=== PATIENT | male | born 1995 | race American Indian/Alaskan Native ===

== ENCOUNTER 2017-01-03 20:48 | Emergency (ER) | payer SELFPAY ==
--- NOTE | 2017-01-04 01:38 | Emergency Department Report ---
ED Upper Extremity Inj HPI - General Chief Complaint: Extremity Injury, Upper Stated Complaint: LT HAND FIFTH FINGER INJURY/RT SHOULDER INJURY Time Seen by Provider: 01/04/17 01:28 Source: patient Mode of arrival: Ambulatory Limitations: No Limitations - History of Present Illness Initial Comments: This is a 22-year-old male well-nourished with nontoxic or ill in appearance that presents to the ED with a complaint of right shoulder pain status post playing basketball 2 days ago and running into his partner. Patient also has a secondary complaint of left pinky finger injury that has occurred 3 weeks ago and like to have it evaluated. Patient stated this has occurred while playing as well as well. Patient with shoulder pain as 6 out of 10 that is described as sharp. Patient denies any numbness, tingling, fever, chills, joint swelling , joint redness, decreased range of motion, pop sensation, chest pain, short of breath, stiff neck, headache or blurry vision. Patient denies any allergies. Denies Past medical history. MD Complaint: Injury to:: right, shoulder, finger -: Gradual, days(s) (2) Other Extremity Injury: Fingers: Left (pinky), Shoulder: Right Other Injuries: none Place: outdoors Severity scale (0 -10): 6 Improves With: none Worsens With: none Context: direct blow Associated Symptoms: denies other symptoms. denies: weakness, numbness, neck pain, nausea/vomiting, heard/felt popping sensat - Related Data Previous Rx's Medication Instructions Recorded Last Taken Type Ibuprofen [Motrin 600 MG tab] 600 mg PO Q8H PRN #20 tablet 01/04/17 Unknown Rx Allergies Allergy/AdvReac Type Severity Reaction Status Date / Time No Known Allergies Allergy Unverified 01/03/17 22:01 ED Review of Systems ROS: Stated complaint: LT HAND FIFTH FINGER INJURY/RT SHOULDER INJURY Other details as noted in HPI Constitutional: denies: chills, fever Eyes: denies: eye pain, eye discharge, vision change ENT: denies: ear pain, throat pain Respiratory: denies: cough, shortness of breath, wheezing Cardiovascular: denies: chest pain, palpitations Endocrine: no symptoms reported Gastrointestinal: denies: abdominal pain, nausea, diarrhea Genitourinary: denies: urgency, dysuria Musculoskeletal: denies: back pain, joint swelling, arthralgia Skin: denies: rash, lesions Neurological: denies: headache, weakness, paresthesias Psychiatric: denies: anxiety, depression Hematological/Lymphatic: denies: easy bleeding, easy bruising ED Past Medical Hx - Past Medical History Previous Medical History?: No - Surgical History Past Surgical History?: No - Social History Smoking Status: Current Every Day Smoker Substance Use Type: Alcohol, Marijuana - Medications Home Medications: Home Medications Medication Instructions Recorded Confirmed Last Taken Type Ibuprofen [Motrin 600 MG tab] 600 mg PO Q8H PRN #20 tablet 01/04/17 Unknown Rx ED Physical Exam - General Limitations: No Limitations General appearance: alert, in no apparent distress - Head Head exam: Present: atraumatic, normocephalic, normal inspection - Eye Eye exam: Present: normal appearance, PERRL, EOMI. Absent: scleral icterus, conjunctival injection, nystagmus, periorbital swelling, periorbital tenderness Pupils: Present: normal accommodation - ENT ENT exam: Present: normal exam, normal orophraynx, mucous membranes moist, TM's normal bilaterally, normal external ear exam - Neck Neck exam: Present: normal inspection, full ROM. Absent: tenderness, meningismus, lymphadenopathy, thyromegaly - Respiratory Respiratory exam: Present: normal lung sounds bilaterally. Absent: respiratory distress, wheezes, rales, rhonchi, stridor, chest wall tenderness, accessory muscle use, decreased breath sounds, prolonged expiratory - Cardiovascular Cardiovascular Exam: Present: regular rate, normal rhythm, normal heart sounds. Absent: bradycardia, tachycardia, irregular rhythm, systolic murmur, diastolic murmur, rubs, gallop - GI/Abdominal GI/Abdominal exam: Present: soft, normal bowel sounds. Absent: distended, tenderness, guarding, rebound, rigid - Rectal Rectal exam: Present: deferred - Extremities Exam Extremities exam: Present: normal inspection, full ROM, normal capillary refill. Absent: tenderness, pedal edema, joint swelling, calf tenderness - Expanded Upper Extremity Exam Right General: Present: normal inspection Shoulder Exam: Present: normal inspection, full ROM. Absent: tenderness, swelling, abrasion, laceration, ecchymosis, deformity, crepidus, dislocation, erythema, tenderness over AC joint Upper Arm exam: Present: normal inspection, full ROM. Absent: tenderness, swelling, abrasion, laceration, ecchymosis, deformity, crepidus, dislocation, erythema Elbow exam: Present: normal inspection, full ROM. Absent: tenderness, swelling , abrasion, laceration, ecchymosis, deformity, crepidus, dislocation, erythema, effusion, pain w/ pronation/supination, tenderness over radial head Forearm Wrist exam: Present: normal inspection, full ROM. Absent: tenderness, swelling, abrasion, laceration, ecchymosis, deformity, crepidus, dislocation, erythema, tenderness over anatomical snuff box, pain with axial thumb loading Hand Wrist exam: Present: full ROM (left side), dislocation (left pinky). Absent: tenderness, swelling, abrasion, laceration, ecchymosis, deformity, crepidus, erythema, amputation, nail avulsion, subungual hematoma Neuro motor exam: Present: wrist extension intact, thumb opposition intact, thumb IP flexion intact, thumb adduction intact, fingers 2-5 abduction intact Neurosensory exam: Present: 2-point discrimination, radial nerve intact, ulnar nerve intact, median nerve intact Vascular: Present: vascular compromise, normal capillary refill, radial pulse, brachial pulse, ulnar pulse. Absent: pulse deficit radial art, pulse deficit ulnar art - Back Exam Back exam: Present: normal inspection, full ROM. Absent: tenderness, CVA tenderness (R), CVA tenderness (L), muscle spasm, paraspinal tenderness, vertebral tenderness, rash noted - Neurological Exam Neurological exam: Present: alert, oriented X3, CN II-XII intact, normal gait, reflexes normal - Psychiatric Psychiatric exam: Present: normal affect, normal mood - Skin Skin exam: Present: warm, dry, intact, normal color. Absent: rash - Other Other exam information: Negative drop arm test. Negative arc test. ED Course Vital Signs 01/03/17 01/03/17 21:48 22:02 Temperature 98.1 F 98.1 F Pulse Rate 60 60 Respiratory 18 18 Rate Blood Pressure 109/55 Blood Pressure 109/55 [Right] O2 Sat by Pulse 100 96 Oximetry - Reevaluation(s) Reevaluation #1: 01/04/17 01:39 Patient is talking in full sentences with no signs of distress noted. ED Medical Decision Making - Medical Decision Making Ed course: This is a 21-year-old male that presents with shoulder strain 1- patient was examined by myself. Xray of shoulder and finger has been obtained. 2-Patient was notified of xray results with no further questions noted by the patient 3- Patient received a should sling and was instructed to follow-up with Dr. Modi in 24 hours or if symptoms worse return to emergnecy department as soon as possible. 4- patient received ibuprofen at time of discharge. 5- at time time of discharge, the patient does not seem toxic or ill in appearance. No acute signs of distress noted. Patient agrees to discharge treatment plan of care. No further questions noted by the patient. Critical care attestation.: If time is entered above; I have spent that time in minutes in the direct care of this critically ill patient, excluding procedure time. ED Disposition Clinical Impression: Right shoulder strain Qualifiers: Encounter type: initial encounter Qualified Code(s): S46.911A - Strain of unspecified muscle, fascia and tendon at shoulder and upper arm level, right arm , initial encounter Disposition: TO HOME OR SELFCARE Is pt being admited?: No Does the pt Need Aspirin: No Condition: Stable Instructions: Ibuprofen (By mouth) Additional Instructions: follow-up with Dr. Modi or another orthopedic doctor within 24 hours or if symptoms such as numbness, tingling, blue colored or cool extremity, swelling, fever, chills, chest pain or shortness of breath return to the emergency room as soon as possible Take ibuprofen as prescribed as needed for pain. Prescriptions: Ibuprofen [Motrin 600 MG tab] 600 mg PO Q8H PRN #20 tablet PRN Reason: Pain Referrals: PRIMARY MD VELVET [Primary Care Provider] - 3-5 Days [facility] [Outside] - 3-[address] [facility] [Outside] - 3-5 Days KADEEM MODI MD [Staff Physician] - 24 Hours Forms: Work/School Release Form(ED)
--- NOTE | 2017-01-04 02:14 | XRay Report ---
FINAL REPORT EXAM: XR FINGER(S) 2 LT HISTORY: hurt finger three weeks ago TECHNIQUE: Single, frontal view of left hand and 2 views of left little finger. PRIORS: None. FINDINGS: Boutonniere deformity noted in little finger. Joint spaces maintained. No apparent fracture or dislocation. Soft tissues grossly unremarkable. IMPRESSION: 1. No acute osseous abnormality. 2. Boutonniere deformity in left little finger may represent soft tissue injury, including interruption of extensor tendon central slip. Followup suggested.
--- NOTE | 2017-01-04 02:14 | XRay Report ---
FINAL REPORT EXAM: XR SHOULDER 2 RT HISTORY: hurt shoulder playing basketball TECHNIQUE: 3 views of right shoulder. PRIORS: None. FINDINGS: Joint spaces maintained. No apparent fracture or dislocation. Soft tissues grossly unremarkable. IMPRESSION: 1. No acute osseous abnormality.
[2017-01-04 02:35] VITALS: BP 108/62
== END 2017-01-04 02:35 | disposition home or self-care (01) ==
LOC: ED 20:48
DX: S46.911A Strain of unspecified muscle, fascia and tendon at shoulder and upper arm level, right arm, initial encounter (principal); F17.210 Nicotine dependence, cigarettes, uncomplicated; F12.10 Cannabis abuse, uncomplicated; X58.XXXA Exposure to other specified factors, initial encounter; Y93.67 Activity, basketball; Y92.89 Other specified places as the place of occurrence of the external cause; Y99.8 Other external cause status
CPT/HCPCS: 99283

== ENCOUNTER 2017-01-13 10:42 | Emergency (ER) | payer SELFPAY ==
[2017-01-13 10:57] VITALS: BP 119/72
--- NOTE | 2017-01-13 18:47 | Emergency Department Report ---
Entered by ALEK MCCRAY, acting as scribe for IVONE LAW NP. ED Upper Extremity Inj HPI - General Chief Complaint: Extremity Injury, Upper Stated Complaint: RT SHOULDER INJURY Time Seen by Provider: 01/13/17 12:05 Source: patient Mode of arrival: Ambulatory Limitations: No Limitations - History of Present Illness Initial Comments: This is a 21 year old male male nontoxic, well nourished in appearance, no acute signs of distress, with no significant PMHx, presents to the ED c/o medical clearance after a right shoulder injury 1 1/2 weeks ago. Patient reports he was playing basketball when he injured his right shoulder. Patient was seen here in the ED with normal xray findings, as per patient. He stated he was told to have a MRI to rule out torn rotator cuff or other abnormalities. Patient stated he has not follow-up with orthopedic doctor and is requesting a medical clearance in the ED. Patient denies any current trauma. Denies any pain, swelling, deformity, headache, dizziness, CP, SOB, numbness or tingling. Patient stated all symptoms have subsided. NKDA. ESPINAL Complaint: Injury to:: right Onset/Timin -: week(s) Other Extremity Injury: Shoulder: Right Other Injuries: none Place: outdoors Severity scale (0 -10): 0 Context: sports-related injury (playing basketball) Associated Symptoms: denies other symptoms. denies: weakness, numbness, neck pain, suspects foreign body, nausea/vomiting, heard/felt popping sensat - Related Data Previous Rx's Medication Instructions Recorded Last Taken Type Ibuprofen [Motrin 600 MG tab] 600 mg PO Q8H PRN #20 tablet 01/04/17 Unknown Rx Allergies Allergy/AdvReac Type Severity Reaction Status Date / Time No Known Allergies Allergy Verified 01/13/17 10:45 ED Review of Systems Comment: All other systems reviewed and negative Constitutional: denies: chills, fever Eyes: denies: eye pain, eye discharge, vision change ENT: denies: ear pain, throat pain Respiratory: denies: cough, shortness of breath, wheezing Cardiovascular: denies: chest pain, palpitations Endocrine: no symptoms reported Gastrointestinal: denies: abdominal pain, nausea, vomiting, diarrhea Genitourinary: denies: urgency, dysuria Musculoskeletal: denies: back pain, joint swelling, arthralgia Skin: denies: rash, lesions Neurological: denies: headache, weakness, paresthesias Psychiatric: denies: anxiety, depression Hematological/Lymphatic: denies: easy bleeding, easy bruising ED Past Medical Hx - Past Medical History Previous Medical History?: No - Surgical History Past Surgical History?: No - Social History Smoking Status: Never Smoker Substance Use Type: None - Medications Home Medications: Home Medications Medication Instructions Recorded Confirmed Last Taken Type Ibuprofen [Motrin 600 MG tab] 600 mg PO Q8H PRN #20 tablet 01/04/17 Unknown Rx ED Physical Exam - General Limitations: No Limitations General appearance: alert, in no apparent distress - Head Head exam: Present: atraumatic, normocephalic, normal inspection - Eye Eye exam: Present: normal appearance, PERRL, EOMI. Absent: scleral icterus, conjunctival injection, nystagmus, periorbital swelling, periorbital tenderness Pupils: Present: normal accommodation. Absent: irregular - ENT ENT exam: Present: normal exam, normal orophraynx, mucous membranes moist, TM's normal bilaterally, normal external ear exam - Neck Neck exam: Present: normal inspection, full ROM. Absent: tenderness, meningismus, lymphadenopathy, thyromegaly - Respiratory Respiratory exam: Present: normal lung sounds bilaterally. Absent: respiratory distress, wheezes, rales, rhonchi, stridor, chest wall tenderness, accessory muscle use, decreased breath sounds, prolonged expiratory - Cardiovascular Cardiovascular Exam: Present: regular rate, normal rhythm, normal heart sounds. Absent: bradycardia, tachycardia, irregular rhythm, systolic murmur, diastolic murmur, rubs, gallop - GI/Abdominal GI/Abdominal exam: Present: soft, normal bowel sounds. Absent: distended, tenderness, guarding, rebound, rigid - Rectal Rectal exam: Present: deferred - Extremities Exam Extremities exam: Present: normal inspection, full ROM, normal capillary refill. Absent: tenderness, pedal edema, joint swelling, calf tenderness - Expanded Upper Extremity Exam Right General: Present: normal inspection Shoulder Exam: Present: normal inspection, full ROM. Absent: tenderness, swelling, abrasion, laceration, ecchymosis, deformity, dislocation, erythema, tenderness over AC joint Upper Arm exam: Present: normal inspection, full ROM. Absent: tenderness, swelling, abrasion, laceration, ecchymosis, deformity, crepidus, dislocation, erythema Elbow exam: Present: normal inspection, full ROM. Absent: tenderness, swelling , abrasion, laceration, ecchymosis, deformity, crepidus, dislocation, erythema, effusion, pain w/ pronation/supination, tenderness over radial head Forearm Wrist exam: Present: normal inspection, full ROM. Absent: tenderness, swelling, abrasion, laceration, ecchymosis, deformity, crepidus, dislocation, erythema, tenderness over anatomical snuff box, pain with axial thumb loading Hand Wrist exam: Present: normal inspection, full ROM. Absent: tenderness, swelling, abrasion, laceration, ecchymosis, deformity, crepidus, dislocation, erythema, amputation, nail avulsion, subungual hematoma Neuro motor exam: Present: wrist extension intact, thumb opposition intact, thumb IP flexion intact, thumb adduction intact, fingers 2-5 abduction intact Neurosensory exam: Present: 2-point discrimination, radial nerve intact, ulnar nerve intact, median nerve intact Vascular: Present: vascular compromise, normal capillary refill, radial pulse, brachial pulse, ulnar pulse - Back Exam Back exam: Present: normal inspection, full ROM. Absent: tenderness, CVA tenderness (R), CVA tenderness (L), muscle spasm, paraspinal tenderness, vertebral tenderness, rash noted - Neurological Exam Neurological exam: Present: alert, oriented X3, CN II-XII intact, normal gait, reflexes normal - Psychiatric Psychiatric exam: Present: normal affect, normal mood - Skin Skin exam: Present: warm, dry, intact, normal color. Absent: rash ED Course Vital Signs 01/13/17 10:46 Temperature 98.3 F Pulse Rate 72 Respiratory 18 Rate Blood Pressure 119/72 O2 Sat by Pulse 100 Oximetry - Reevaluation(s) Reevaluation #1: 01/13/17 12:44 Patient is able speak in full sentences with no signs of distress noted. ED Medical Decision Making - Medical Decision Making ED course; this is a 21-year-old male that presents with a medical clearance Patient was examined myself. Patient requested a medical clearance after injury to right shoulder. Patient was seen in ED on 01/03/17. ED notes suggest patient to follow-up with orthopedic doctor for possible MRI. Patient stated he did not follow the repeated doctor and is here today to get medical clearance emergency room. I instructed the patient that he must get an MRI to rule out other injuries that are not visible on x-ray. I notified to the patient that he must be cleared by orthopedic doctor or a primary care doctor. Patient requested previous x-rays. I give the patient the report of her previous x-ray of shoulder finger. I also instructed the patient that he could go to medical records and obtain all his records. I provided patient with different referrals for orthopedic doctor and low cost outpatient clinics. At time time of discharge, the patient does not seem toxic or ill in appearance. No acute signs of distress noted. Patient agrees to discharge treatment plan of care. No further questions noted by the patient. ED Disposition Clinical Impression: Shoulder pain Qualifiers: Chronicity: unspecified Laterality: right Qualified Code(s): M25.511 - Pain in right shoulder Finger pain Qualifiers: Laterality: left Qualified Code(s): M79.645 - Pain in left finger(s) Disposition: DC-01 TO HOME OR SELFCARE Is pt being admited?: No Does the pt Need Aspirin: No Condition: Stable Additional Instructions: Please follow up with orthopedic doctor/primary care doctor for further evaluation of right shoulder as to receive discussed in the ED. Referrals: PRIMARY CAREMD [Primary Care Provider] - 3-5 Days KADEEM MAHAN MD [Staff Physician] - 3-5 Days SHILPI JJ MD [Staff Physician] - 3-5 Days [facility] [Outside] - 3-5 Days [facility] [Outside] - 3-5 Days [facility] [Outside] - 3-5 Days This documentation as recorded by the SHAZIA burgess PEARL,accurately reflects the service I personally performed and the decisions made by me,IVONE LAW, SO.
== END 2017-01-13 13:05 | disposition home or self-care (01) ==
LOC: ED 10:42
DX: M25.511 Pain in right shoulder (principal); M79.645 Pain in left finger(s)
CPT/HCPCS: 99282